=== PATIENT | female | born 1995 | race Caucasian/White ===

== ENCOUNTER 2018-12-28 15:20 | Inpatient (IN) | payer OTHER ==
[2018-12-28] MEDS ORDERED: Ringers Lactate 1,000 ML IV PRN (16:22)
[2018-12-28] MEDS ORDERED: Ringers Lactate 1,000 ML IV SCH (17:00)
[2018-12-28] MEDS ORDERED: OXYTOCIN/LR 20 UNIT/1,000 ML BAG IV SCH ×2 (17:00→21:00)
[2018-12-28] MEDS ORDERED: NA CIT/CITRIC AC 30 ML ORAL UDC PO ONE (17:31)
[2018-12-28] MEDS ORDERED: FAMOTIDINE 20 MG/2 ML VIAL IV ONE (17:32)
[2018-12-28 17:53] LABS: Urine Appearance CLEAR; Urine Bilirubin NEGATIVE (NEG); Urine Blood 1+ (NEG); Urine Color YELLOW; Urine Glucose NEGATIVE (NEG); Urine Protein NEGATIVE (NEG); Urine Urobilinogen 0.2 mg/dL (0.2-1.0); Urine pH 6.5 (5.0-7.0)
[2018-12-28 17:56] LABS: Urine Microscopic Reflex ORDER UMIC
[2018-12-28] MEDS ORDERED: METOCLOPRAMIDE 10 MG/2mL INJ IV SCH (18:00)
[2018-12-28 18:03] LABS: Urine Bacteria NONE SEEN /HPF (<20); Urine Culture Reflex Order NOT NEEDED
[2018-12-28 18:09] LABS: Absolute Lymphocytes (CBC) 2.4 K/uL (0.7-4.9); Basophils % 0.2 % (0-1.3); Hematocrit 38.6 % (36.0-45.0); Lymphocytes % 19.8 % (15.3-44.8); MPV 11.2 fL (7.6-11.3); RBC Red Blood Cell Count 4.07 M/uL (3.86-4.86)
[2018-12-28] MEDS ORDERED: CEFAZOLIN/SWI 2gm 2 GM/20 ML SYR IVP ONE (18:15)
[2018-12-28 18:34] VITALS: BMI 25.6
[2018-12-28] MEDS ORDERED: MORPHINE SULFATE/PF 1 MG/ML (10 ML AMP) ONE (19:31)
[2018-12-28] MEDS ORDERED: FENTANYL CITR 250 MCG/5 ML ONE (19:31)
[2018-12-28] MEDS ORDERED: LIDOCAINE 1.5% W/EPI AMP 5 ML ONE (19:38)
[2018-12-28] MEDS ORDERED: OXYTOCIN 10 UNIT/ML ML IV ONE (19:38)
[2018-12-28] MEDS ORDERED: Phenylephrine HCl 10 MG/ML 1 ML VIAL ONE (19:39)
[2018-12-28] MEDS ORDERED: ONDANSETRON 4 MG/2 ML VIAL ONE (20:10)
[2018-12-28] MEDS ORDERED: METHYLERGONOVINE 0.2MG/ML AMP IM PRN (20:57)
[2018-12-28] MEDS ORDERED: ONDANSETRON 4 MG (ODT) TAB PO PRN (20:57)
[2018-12-28] MEDS ORDERED: CARBOPROST TROME 250 MCG/ML IM PRN (20:57)
[2018-12-28] MEDS ORDERED: KETOROLAC 30 MG/ML INJ IV PRN (20:57)
[2018-12-28] MEDS ORDERED: Oxycodone HCl/Acetaminophen 1 TAB TAB PO PRN (20:57)
[2018-12-28] MEDS ORDERED: METHYLERGONOVINE 0.2 MG TAB PO PRN (20:57)
--- NOTE | 2018-12-28 21:01 | P.BOP ---
Preoperative diagnosis: 37 wk , labor, cpd Postoperative diagnosis: same, viable female infant Primary procedure: , delivery viable female Truss Builder: Fina Ellington Estimated blood loss: 1000ml Specimen: placenta Anesthesia: Spinal Complications: None Transferred to: Other ([id number]) Condition: Good
[2018-12-28 21:20] LABS: RPR (Rapid Plasma Reagin) NON-REACT (NON-REACT)
--- NOTE | 2018-12-28 22:40 | PREOPHP ---
Date of Admission: 12/28/2018 History Of Present Illness: Ms. Pierce is a 23-year-old female, 1, para 0 , at approximately 38 weeks gestation, admitted in labor. 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 She is admitted with contractions, intact membran es. Past Medical History: Please see record. Family History: Please see record. Review of Systems: She reports no recent cough, cold, fever, or chills. No recent nausea or vomiting. No breast knots or lumps. No bowel or bladder issues. The has been active. Physical Examination: General: Reveals pleasant female, in mild discomfort. Neck: Supple without adenopathy or thyromegaly. Lungs: Clear. Cardiac: Regular rate and rhythm without murmurs. Breasts: Not examined. Abdomen: Nontender. Estimated weight of 7+ pounds. Pelvic: Somewhat narrow pubic arch. Vertex presentation at -2 station. At this point, approximatel y 2 cm dilated, 70% effaced. Extremities: Trace to 1+ lower extremity edema. Impression: Thirty-eight week , early labor, possible borderline pelvis. Plan: We will perform primary section secondary to concerns of borderline adequate pelvis i n a patient who has suffered a brachial plexus injury herself. This has been discussed with Ms. Armenta son since very early in the as far as management of labor and route of delivery. DAVIN/ROGERIO Voice ID: [id number]
[2018-12-29 04:53] LABS: Absolute Lymphocytes (CBC) 1.7 K/uL (0.7-4.9); Basophils % 0.4 % (0-1.3); Hematocrit 32.3 % (36.0-45.0); Lymphocytes % 13.6 % (15.3-44.8); MPV 10.6 fL (7.6-11.3); RBC Red Blood Cell Count 3.42 M/uL (3.86-4.86)
[2018-12-29 05:52] LABS: Urine White Blood Cell Casts OK
[2018-12-29 05:53] LABS: Blood Morphology Comment NOT SEEN (NOT SEEN); Platelet Estimate DECR
[2018-12-29] MEDS ORDERED: DIPHENHYDRAMINE 25 MG TAB/CAP PO PRN (07:37)
[2018-12-29] MEDS: Oxycodone HCl/Acetaminophen 1 TAB TAB PO PRN (21:28)
[2018-12-30] MEDS: Oxycodone HCl/Acetaminophen 1 TAB TAB PO PRN ×3 (05:45→19:18)
[2018-12-30 07:10] LABS: Absolute Lymphocytes (CBC) 1.4 K/uL (0.7-4.9); Basophils % 0.4 % (0-1.3); Hematocrit 28.5 % (36.0-45.0); Lymphocytes % 18.7 % (15.3-44.8); MPV 9.3 fL (7.6-11.3); RBC Red Blood Cell Count 2.99 M/uL (3.86-4.86)
[2018-12-30 08:31] LABS: Platelet Estimate DECR; Urine White Blood Cell Casts OK
[2018-12-30 08:32] LABS: Blood Morphology Comment NOT SEEN (NOT SEEN)
[2018-12-30 09:25] LABS: Albumin 2.3 g/dL (3.4-5.0); Bilirubin Direct 0.1 mg/dL (0-0.2); Bilirubin Total 0.5 mg/dL (0.2-1.0); Protein, Total 5.5 g/dL (6.4-8.2)
[2018-12-31] MEDS: Oxycodone HCl/Acetaminophen 1 TAB TAB PO PRN ×2 (00:42→07:10)
[2018-12-31 06:17] VITALS: TEMP 98
[2018-12-31 07:22] VITALS: BP 122/71
[2019-01-02 03:45] LABS: HBsAG Nonreactive (Nonreactive)
--- NOTE | 2019-01-02 07:10 | DS ---
Date of Discharge: 12/31/2018 Summary: Ms. Lauren is a 23-year-old female, 1, para 0, at approximately 3 7+ weeks gestation. She is admitted in early labor, having changed her cervix from fingertip to 1 cm in the office to approximately 2+ cm at the hospital with regular contractions. Because verte x has remained high, essentially above the pubic bone, I suspected cephalopelvic disproportion. Solange use of this, she was delivered by primary section of a 6 pounds 11 ounces female . George magana was dismissed on the second postoperative day with usual post section activity restriction s with prescription for Tylenol No. 3 #15 for pain relief. She was to be seen back in my office this coming week. Lab results included an admission hemoglobin and hematocrit of 13.4 and 38.6, and dism issal hemoglobin and hematocrit of 10.1 and 28.5. Platelet count dropped from 128 to 95,000 to 89,00 0. Of note, her mother had similar issues during her with somewhat decreased platelet coun t, but on exam there were noted to be megakaryocytes. Other lab work including liver functions were essentially normal. Urine specimen was normal. Serology RPR was nonreactive. She is B positive blo od type. MPG/MODL Voice ID: [id number] Report ID: [id number]
--- NOTE | 2019-01-14 06:34 | OP ---
Surgeon: Deep Seay MD Electrical Parts Reconditioner: Dr. Ellington. Anesthesiologist: Dr. Osmin Pearson. Preoperative Diagnoses: 1.Term . 2.Suspected cephalopelvic disproportion. Procedure: Spinal block anesthesia, primary section. Postoperative Diagnoses: 1.Term . 2.Suspected cephalopelvic disproportion. 3.Delivery of viable female infant. Description Of Procedure: After patient received 2 g of Ancef and a satisfactory level of spinal blo ck anesthesia was obtained, a Pfannenstiel skin incision was made and carried down to the fascia. Th e fascia incised with a combination of sharp and blunt dissection. This was from the under lying rectus muscles, these were divided in the midline. The peritoneum identified and incised. Ves icouterine peritoneum incised, a bladder flap was developed. A low-transverse uterine incision was m diana and a 6 pound 11 ounces female infant was delivered vertex presentation. Cord was clamped, cut, and the placed in a warmer. Cord blood was obtained. The placenta was manually removed. The uterus was then exteriorized. The cervix was dilated from above with ring clamp which was passed fr om the operative field. The uterus was closed in 2 layers utilizing running sutures of 0 Vicryl in a nonlocking fashion, second layer used to imbricate the first. The bladder flap was reapproximated w ith running suture of 3-0 Vicryl. The uterus was returned to the peritoneal cavity which was cleaned of amniotic fluid, debris, and blood clots. The rectus muscles were approximated in the midline wit h simple sutures of 0 Vicryl. The fascia was closed with a running suture of #1 Vicryl from either m argin to the middle. The skin was closed with subcutaneous sutures of 3-0 Vicryl, subdermal suture o f 3-0 Vicryl in a running fashion and subcuticular suture of 4-0 Monocryl. Patient was taken to papi very room in satisfactory condition with Bueno catheter in place. Estimated total blood loss was les s than 800 mL. DAVIN/ROGERIO Voice ID: [id number] Report ID: [id number]
== END 2018-12-31 10:00 | disposition home or self-care (01) | DRG 788 ==
LOC: L&D 15:20 → 2ND-WC 16:12
PROVIDERS: ADMIT Specialist; ATTEND Specialist
PROC: 10D00Z1 Extraction of Products of Conception, Low, Open Approach (ICD-10-PCS; principal; 2018-12-28 07:45)
DX: O33.9 Maternal care for disproportion, unspecified (principal); Z3A.37 37 weeks gestation of pregnancy; Z37.0 Single live birth
CPT/HCPCS: 36415; 80076; 81003; 81015; 85025; 86592; 86850; 86900; 86901; 87340; 88307; J0690; J2001; J2370; J2405; J2590; J2765; J3010; J7120

== ENCOUNTER → 2023-10-19 | Day surgery (SDC) | payer SELFPAY ==
--- NOTE | 2023-10-19 12:41 | RAD REPORT ---
EXAM DESCRIPTION: US - Guided FNA Non Breast - 10/19/2023 11:13 am CLINICAL HISTORY: E07.89, R22.9 COMPARISON: No comparisons FINDINGS: Preoperative diagnosis: Left thyroid/isthmic junction nodule. Post operative diagnosis: Same. Conscious Sedation: None Fluoroscopy time: None Contrast used: None Estimated blood loss: Minimal Specimens:As below Informed consent was obtained following discussion of the risks and benefits with the patient. Time-o ut procedure was performed. The anterior neck was prepped and draped in the usual sterile fashion. 1% lidocaine was infiltrated into the subcutaneous tissues for local anesthesia. Real time ultrasound s femi of the anterior neck demonstrated a mixed cystic and solid left thyroid/ isthmic junction nod ule measuring 2.7 x 2.8 x 1.5 cm. Under ultrasound guidance, using a short 25 gauge needles, 5 FNA sp ecimens were obtained of this lesion and sent to pathology for evaluation. There were no complication s. IMPRESSION: Successful ultrasound-guided fine-needle aspiration/biopsy of a left thyroid/isthmic tammi ction nodule.
== END ==
LOC: FNA 09:39
PROVIDERS: ATTEND Nurse Practitioner Family
PROC: 0G9G3ZX Drainage of Left Thyroid Gland Lobe, Percutaneous Approach, Diagnostic (ICD-10-PCS; principal; 2023-10-19)
DX: E07.89 Other specified disorders of thyroid (principal); R22.9 Localized swelling, mass and lump, unspecified
CPT/HCPCS: 88162